=== PATIENT | female | born 1985 | race Caucasian/White ===

== ENCOUNTER 2017-06-19 16:46 | Emergency (ER) | payer MEDICAID ==
[2017-06-19 19:31] VITALS: BP 146/89
--- NOTE | 2017-06-19 19:43 | UC ---
Back Pain HPI - HPI Summary HPI Summary: Pt c/o low back pain X 2 days. P treports that she had been moving heavy furniture 1 week ago and she reports that her ~60Lb dog has been sleeping on her back. Pt states mathew pain is in low back and radiates to posterior upper legs. - History of Current Complaint Chief Complaint: UCLowerExtremity Stated Complaint: LOW BACK PAIN Time Seen by Provider: 06/19/17 19:21 Hx Obtained From: Patient Hx Last Menstrual Period: MIRENA IUD ?: No Onset/Duration: Gradual Onset, Lasting Days, Still Present Timing: Constant Severity Initially: Mild Severity Currently: Moderate Back Pain: Is Discrete @ - low back, Radiates To - posteror upper legs Character: Dull, Aching, Spasmodic, Stiffness Aggravating Factor(s): Movement, Lifting Alleviating Factor(s): Rest, Position Associated Signs And Symptoms: Positive: Negative - Risk Factors AAA Risk Factors: Negative TAD Risk Factors: Negative Cauda Equina Risk Factors: Negative Epidural Abscess Risk Factors: Negative - Allergies/Home Medications Allergies/Adverse Reactions: Allergies Allergy/AdvReac Type Severity Reaction Status Date / Time No Known Allergies Allergy Verified 06/19/17 19:21 PMH/Surg Hx/FS Hx/Imm Hx Previously Healthy: Yes - Surgical History Surgical History: Yes Surgery Procedure, Year, and Place: 2 c-sections, tonsilectomy - Family History Known Family History: Positive: Cardiac Disease, Hypertension - Social History Occupation: Employed Full-time Lives: With Family Alcohol Use: None Substance Use Type: None Smoking Status (MU): Light Every Day Tobacco Smoker Type: Cigarettes Amount Used/How Often: 1/2 PPD Have You Smoked in the Last Year: Yes - Immunization History Most Recent Influenza Vaccination: no 2016 Review of Systems Constitutional: Negative Skin: Negative Eyes: Negative ENT: Negative Respiratory: Negative Cardiovascular: Negative Gastrointestinal: Negative Genitourinary: Negative Motor: Decreased ROM - low back Neurovascular: Negative Musculoskeletal: Arthralgia, Decreased ROM - low back, Myalgia Neurological: Negative Psychological: Negative Is Patient Immunocompromised?: No All Other Systems Reviewed And Are Negative: Yes Physical Exam Triage Information Reviewed: Yes Appearance: Well-Appearing, Obese Vital Signs: Initial Vital Signs Temp 98.5 F 06/19/17 19:21 Pulse 87 06/19/17 19:21 Resp 18 06/19/17 19:21 BP 146/89 06/19/17 19:21 Pulse Ox 100 06/19/17 19:21 Vital Signs Reviewed: Yes Eye Exam: Normal ENT Exam: Normal Dental Exam: Normal Neck exam: Normal Respiratory Exam: Normal Cardiovascular Exam: Normal Musculoskeletal Exam: Other Musculoskeletal: Positive: ROM Limited @ - low back Neurological Exam: Normal Psychological Exam: Normal Skin Exam: Normal Back Pain Course/Dx - Differential Dx/Diagnosis Differential Diagnosis/HQI/PQRI: Herniated Disc, Strain, Sprain Provider Diagnoses: low back strain. sciatica Discharge - Discharge Plan Condition: Stable Disposition: HOME Prescriptions: Cyclobenzaprine TAB* [Flexeril 10 MG TAB*] 10 mg PO Q8H PRN #15 tab PRN Reason: Pain Ibuprofen TAB* [Motrin TAB* 800 MG] 800 mg PO Q8H PRN #15 tab PRN Reason: Pain Patient Education Materials: Low Back Strain (ED), Acute Low Back Pain (ED), Lower Back Exercises (ED), Core Strengthening Exercises (ED) Referrals: Frances Infante MD [Primary Care Provider] - If Needed
== END 2017-06-19 19:53 | disposition home or self-care (01) ==
LOC: UCCORT 16:46
DX: S39.012A Strain of muscle, fascia and tendon of lower back, initial encounter (principal); X50.0XXA Overexertion from strenuous movement or load, initial encounter; Y93.89 Activity, other specified; Y92.9 Unspecified place or not applicable; M54.40 Lumbago with sciatica, unspecified side; E66.9 Obesity, unspecified; F17.210 Nicotine dependence, cigarettes, uncomplicated
CPT/HCPCS: 99212; G0463

== ENCOUNTER 2018-06-28 16:49 | Emergency (ER) | payer OTHER ==
[2018-06-28 18:44] VITALS: BP 143/85
[2018-06-28] MEDS ORDERED: Penicillin VK TAB* 250 MG PO ONE (18:50)
--- NOTE | 2018-06-28 18:50 | UC ---
Dental HPI - HPI Summary HPI Summary: Right lower molar fractured 6 months ago. Much worse pain since last night. - History of Current Complaint Chief Complaint: UCDentalProblem Stated Complaint: DENTAL COMPLAINT Time Seen by Provider: 06/28/18 18:41 Hx Obtained From: Patient Hx Last Menstrual Period: 06/07/18 ?: No Onset/Duration: Sudden Onset, Lasting Days - 1, Still Present Severity: Severe Pain Intensity: 10 Aggravating Factor(s): Chewing Alleviating Factor(s): OTC Meds - ibuprofen Related History: Previous Dental Care on Same Tooth - Filling had fallen out before fracture. - Allergies/Home Medications Allergies/Adverse Reactions: Allergies Allergy/AdvReac Type Severity Reaction Status Date / Time No Known Allergies Allergy Verified 06/28/18 18:34 Home Medications: Home Medications Varenicline (NF) [Chantix 1 MG TAB (NF)] 1 mg PO BID 06/28/18 [History Confirmed 06/28/18] metFORMIN* [Glucophage 500 MG TAB *] 500 mg PO BID 06/28/18 [History Confirmed 06/28/18] PMH/Surg Hx/FS Hx/Imm Hx Other Endocrine History: pre-diabetes - Surgical History Surgical History: Yes Surgery Procedure, Year, and Place: 2 c-sections, tonsilectomy - Family History Known Family History: Positive: Cardiac Disease, Hypertension, Diabetes - Social History Occupation: Employed Full-time Lives: With Family - fiance and children Alcohol Use: None Substance Use Type: None Smoking Status (MU): Light Every Day Tobacco Smoker Type: Cigarettes Amount Used/How Often: 2 CIGS A DAY, ON CHANTIX Have You Smoked in the Last Year: Yes - Immunization History Most Recent Influenza Vaccination: no 2016 Review of Systems All Other Systems Reviewed And Are Negative: Yes ENT: Positive: Dental Pain Is Patient Immunocompromised?: No Physical Exam Triage Information Reviewed: Yes Appearance: Well-Appearing, Pain Distress, Obese Vital Signs: Initial Vital Signs Temp 97.5 F 06/28/18 18:37 Pulse 83 06/28/18 18:37 Resp 20 06/28/18 18:37 BP 143/85 06/28/18 18:37 Pulse Ox 98 06/28/18 18:37 Vital Signs Reviewed: Yes ENT: Positive: Pharynx normal, TMs normal Dental: Positive: Dental Fracture @ - #31 Neck exam: Normal Respiratory Exam: Normal Cardiovascular Exam: Normal Musculoskeletal Exam: Normal Neurological Exam: Normal Psychological Exam: Normal Skin Exam: Normal Images Dental: 1 - fracture anterior lateral cusp 2 - missing Dental Complaint Course/Dx - Course Course Of Treatment: No issues with narcotics in the past post surgical. Istop checked and no issues. - Differential Dx/Diagnosis Differential Diagnosis/Dx: Dental Abscess, Dental Caries, Fractured Tooth, Odontogenic Pain Provider Diagnosis: Pain, dental Discharge - Sign-Out/Discharge Documenting (check all that apply): Patient Departure All imaging exams completed and their final reports reviewed: No Studies - Discharge Plan Condition: Stable Disposition: HOME Prescriptions: HYDROcodone/ACETAMIN 5-325 MG* [[place] 5-325 TAB*] 1 tab PO Q4H PRN #20 tab MDD 6 PRN Reason: Pain (Dental) Penicillin VK 500 MG TAB(NF) [Penicillin VK 500 mg Tab] 500 mg PO QID #40 tab Patient Education Materials: Toothache (ED), Penicillin V (By mouth), Hydrocodone/Acetaminophen (By mouth) Referrals: Eliane Pierre [Primary Care Provider] - Additional Instructions: DO NOT TAKE ANY EXTRA TYLENOL WITH THE HYDROCODONE/ACETOMINAPHIN PAIN MEDICATION. Ok to take ibuprofen with it. Continue the warm packs. - Billing Disposition and Condition Condition: STABLE Disposition: Home
[2018-06-28] MEDS ORDERED: HYDROcodone/ACETAMIN 5-325 MG* 1 TAB PO ONE (18:51)
== END 2018-06-28 19:22 | disposition home or self-care (01) ==
LOC: UCCORT 16:49
DX: K08.89 Other specified disorders of teeth and supporting structures (principal); S02.5XXA Fracture of tooth (traumatic), initial encounter for closed fracture; R73.03 Prediabetes; Z79.84 Long term (current) use of oral hypoglycemic drugs; F17.210 Nicotine dependence, cigarettes, uncomplicated; Z79.899 Other long term (current) drug therapy; E66.9 Obesity, unspecified; X58.XXXA Exposure to other specified factors, initial encounter; Y92.9 Unspecified place or not applicable
CPT/HCPCS: 99213; A9270-GY; G0463